=== PATIENT | male | born 1940 | race Caucasian/White ===

== ENCOUNTER 2022-04-12 20:50 | Emergency (ER) | payer MEDICARE, OTHER, SELFPAY ==
[2022-04-12 20:52] VITALS: BP 140/70; PULSE 115; RESP 22; TEMP 36.3; O2SAT 94; BMI 23.4
--- NOTE | 2022-04-12 21:58 | EDS_ITS ---
HPI History of Present Illness Chief Complaint: Asthma Narrative Narrative: 81-year-old male presenting with cough. He states this started last night. He states he thought he had a fever at home and he took aspirin earlier today. He has not taken Tylenol and ibuprofen. He does state that he had some chills today. He states he might have some mild body aches. He denies chest pain or shortness of breath. He does not have any nausea or vomiting. Patient states he has a history of OH with cardiac stent distantly. No history of DVT/PE. PFSH PFSH Home Medications ondansetron 4 mg disintegrating tablet 4 mg PO Q8H PRN nausea and vomiting #14 tabs 04/12/22 [Rx Last Taken Unknown] Allergy/AdvReac Type Severity Reaction Status Date / Time heparin AdvReac Other Verified 04/12/22 20:52 Social History Smoking Status: Never smoker ROS ROS ED Constitutional Constitutional ED: Reports chills Eyes Eyes: Denies change in vision ENT ENT ED: Denies rhinorrhea or sore throat Cardiovascular Cardiovascular: Denies chest pain or palpitations Respiratory/Chest Respiratory/Chest: Reports cough; Denies dyspnea or dyspnea on exertion Gastrointestinal Gastrointestinal: Denies abdominal pain, constipation or diarrhea Genitourinary Genitourinary ED: Denies dysuria or hematuria Musculoskeletal Musculoskeletal: Denies arthralgias Integumentary Denies abscess Neurologic Neurologic: Reports headache(s); Denies weakness Psychiatric Psychiatric: Denies anxiety or depression Endocrine Endocrinology: Denies cold intolerance or heat intolerance EXAM Physical Exam Const Vital Signs: 04/12/22 20:52 04/12/22 22:01 Temperature 97.3 F L Temperature Source Temporal Pulse Rate 115 H Respiratory Rate 22 H Respiratory Effort Normal Non-Labored Respiratory Depth Normal Respiratory Pattern Normal Blood Pressure 140/70 H Blood Pressure Mean 93 Pulse Ox 94 Oxygen Delivery Method Room Air Room Air Positive well nourished General Appearance ED: NAD; Negative for pallor HEENT Reports moist mucous membranes Negative for trauma Eyes PERRL and EOMs intact bilaterally General Eye ED: Negative for pale conjunctiva or scleral icterus Neck no lymphadenopathy Chest Wall inspection of chest normal and palpation of chest normal Resp normal respiratory effort Auscultation: Negative for rales, rhonchi or wheezes Cardio regular rhythm Rate: tachycardic Neuro oriented x3 and CN's II-XII intact bilaterally Sensorium / Orientation: alert Motor Exam: strength 5/5 throughout Psych mental status grossly normal Skin no rashes or lesions noted General Skin Exam: Negative for jaundice or pallor MDM MDM MDM Narrative Medical decision making narrative: Patient seen and evaluated on arrival. Patient slightly tachycardic and his arrival temperature was 97.3 Fahrenheit. I rechecked this orally at the bedside and is 102.5. Patient complaining of body aches, chills, mild cough. He is not dyspneic. He does not have any nausea and vomiting and he states he drinks 60 ounces of water today. He states his urine is clear. He does not have any chest pain. Patient was given Tylenol 1 g p.o. patient is positive for COVID. Chest x-ray my interpretation shows no acute cardiopulmonary process and radiologist does agree. Patient will be given a prescription for Zofran in case he has any nausea. He is counseled on alternating Tylenol and ibuprofen for fever or body aches. He is to drink plenty of water. Patient is from out of town and will follow-up with his PCP upon return. Impression: 1. COVID-19 2. Febrile illness Lab Data Attestation: I reviewed the patient's lab results. Radiography Diagnostic Testing: Clinical Impression(s) from Imaging Studies Chest X-Ray 04/12/22 22:15 IMPRESSION: Lungs are clear Electronically Signed: Gordon Aguilera DO at 22:42 EDT Reading Location ID and State: [facility] / [place] Tel , Service support , Discharge Plan Triage Chief Complaint: Asthma ED Provider: Jack Pace Dx/Rx/DC Orders Instructions: Coronavirus Disease 2019 (COVID-19): Caring for Yourself or Others Prescriptions: New ondansetron 4 mg tablet,disintegrating 4 mg PO Q8H PRN (Reason: nausea and vomiting) Qty: 14 0RF Disposition Disposition: Home, Self Care
[2022-04-12] MEDS: Acetaminophen 500 MG Tablet 1000 MG PO (22:11)
--- NOTE | 2022-04-12 22:15 | RAD_ITS ---
STUDY: X-RAY CHEST REASON FOR EXAM: Male, 81 years old. cough TECHNIQUE: Single AP portable view of the chest. COMPARISON: None. FINDINGS: There is hyperinflation of the lungs consistent with chronic obstructive lung disease (COPD). Lungs are clear. There is no demonstrated pleural abnormality. Normal size heart. Normal mediastinum and roberto. Normal visualized pulmonary arteries. Normal visualized aortic arch and descending thoracic aorta. Calcified left hilar lymph nodes. Normal visualized thoracic spine. Normal visualized ribs, clavicles, and shoulders. Postsurgical changes of the right humerus There is no demonstrated abnormality of the visualized soft tissue structures of the upper abdomen. RAD/Chest 1 View (Portable) IMPRESSION: Lungs are clear Electronically Signed: Gordon Aguilera DO at 22:42 EDT ,
[2022-04-12 23:22] VITALS: BP 157/97; PULSE 99; RESP 27; O2SAT 96
== END 2022-04-12 23:23 | disposition home or self-care (01) ==
LOC: ED 22:52
PROVIDERS: Emergency Provider Student in an Organized Health Care Education/Training Program; Visit Provider Student in an Organized Health Care Education/Training Program
DX: U07.1 COVID-19 (principal); J45.909 Unspecified asthma, uncomplicated
CPT/HCPCS: 71045; 87428; 99282